=== PATIENT | male | born 2000 | race Caucasian/White ===

== ENCOUNTER 2024-10-08 23:52 | Emergency (ER) | payer SELFPAY ==
--- NOTE | 2024-10-09 00:26 | ED ---
Allergic Reaction HPI - General Chief complaint: Allergic Reaction Stated complaint: allergic reaction Time Seen by Provider: 10/09/24 00:07 Source: patient, RN notes reviewed, old records reviewed Mode of arrival: ambulatory Limitations: no limitations - History of Present Illness Initial Comments: This is a 23-year-old male to the ER for evaluation patient presents today for evaluation regards to allergic reaction to Bactrim. Patient started on Bactrim for UTI. Patient presents with facial swelling and hives overall over his entire body with severe itching MD Complaint: allergic reaction, hives, facial swelling -: hour(s) Exposure: medication Symptoms: rash, itching, facial swelling Severity: severe Treatment Prior to Arrival: none Previous Allergy History: none - Related Data Previous Rx's Medication Instructions Recorded Famotidine [Pepcid] 40 mg PO BID #28 tablet 10/09/24 hydrOXYzine HCL [Atarax] 25 mg PO TID PRN #30 tab 10/09/24 predniSONE 50 mg PO DAILY #5 tab 10/09/24 Allergies Allergy/AdvReac Type Severity Reaction Status Date / Time No Known Allergies Allergy Verified 10/08/24 23:56 Review of Systems ROS Statement: Those systems with pertinent positive or pertinent negative responses have been documented in the HPI. ROS Other: All systems not noted in ROS Statement are negative. Past Medical History Past Medical History: No Reported History History of Any Multi-Drug Resistant Organisms: None Reported Past Surgical History: No Surgical Hx Reported Past Psychological History: No Psychological Hx Reported Smoking Status: Never smoker Past Alcohol Use History: None Reported Past Drug Use History: None Reported General Exam Limitations: no limitations General appearance: alert, in no apparent distress Head exam: Present: atraumatic, normocephalic, normal inspection Eye exam: Present: normal appearance, PERRL, EOMI. Absent: scleral icterus, conjunctival injection, periorbital swelling ENT exam: Present: normal exam, mucous membranes moist Neck exam: Present: normal inspection. Absent: tenderness, meningismus, lymphadenopathy Respiratory exam: Present: normal lung sounds bilaterally. Absent: respiratory distress, wheezes, rales, rhonchi, stridor Cardiovascular Exam: Present: regular rate, normal rhythm, normal heart sounds. Absent: systolic murmur, diastolic murmur, rubs, gallop, clicks GI/Abdominal exam: Present: soft, normal bowel sounds. Absent: distended, tenderness, guarding, rebound, rigid Extremities exam: Present: normal inspection, full ROM, normal capillary refill. Absent: tenderness, pedal edema, joint swelling, calf tenderness Back exam: Present: normal inspection Neurological exam: Present: alert, oriented X3, CN II-XII intact Psychiatric exam: Present: normal affect, normal mood Skin exam: Present: warm, dry, intact, normal color. Absent: rash Course Vital Signs 10/08/24 23:54 Temperature 98.8 F Pulse Rate 147 H Respiratory 20 Rate Blood Pressure 157/89 O2 Sat by Pulse 98 Oximetry - Reevaluation(s) Reevaluation #1: 10/09/24 01:28 Medical records reviewed Reevaluation #2: 10/09/24 01:28 Patient symptoms continue to improve Reevaluation #3: 10/09/24 01:28 Patient informed of results questions answered Reevaluation #4: Was pt. sent in by a medical professional or institution (, PA, [employer], urgent c are, hospital, or snf...) When possible be specific @ -no Did you speak to anyone other than the patient for history (EMS, parent, family, police, friend...)? What history was obtained from this source @ -no Did you review nursing and triage notes (agree or disagree)? Why? @ -agree Are old charts reviewed (outside hosp., previous admission, EMS record, old EKG, old radiological studies, urgent care reports/EKG's, snf records)? Report findings @ -yes Differential Diagnosis (chest pain, altered mental status, abdominal pain women, abdominal pain men, vaginal bleeding, weakness, fever, dyspnea, syncope, headache, dizziness, GI bleed, back pain, seizure, CVA, palpatations, mental health, musculoskeletal)? @ -prior EKG interpreted by me (3pts min.). @ -yes X-rays interpreted by me (1pt min.). @ -yes negative for acute disease CT interpreted by me (1pt min.). @ -no U/S interpreted by me (1pt. min.). @ -no What testing was considered but not performed or refused? (CT, X-rays, U/S, labs)? Why? @ -none What meds were considered but not given or refused? Why? @ -none Did you discuss the management of the patient with other professionals (professionals i.e. , PA, [employer], lab, RT, psych nurse, social science professor, calibration technician, teacher, fire prevention officer, employment case manager)? Give summary @ -no Was smoking cessation discussed for >3mins.? @ -no Was critical care preformed (if so, how long)? @ -no Were there social determinants of health that impacted care today? How? (Home lessness, low income, unemployed, alcoholism, drug addiction, transportation, low edu. Level, literacy, decrease access to med. care, assisted, rehab)? @ -none Was there de-escalation of care discussed even if they declined (Discuss DNR or withdrawal of care, Hospice)? DNR status @ -no What co-morbidities impacted this encounter? (DM, HTN, Smoking, COPD, CAD, Cancer, CVA, ARF, Chemo, Hep., AIDS, mental health diagnosis, sleep apnea, morbid obesity)? @ -none Was patient admitted / discharged? Hospital course, mention meds given and route, prescriptions, significant lab abnormalities, going to OR and other pertinent info. @ - Undiagnosed new problem with uncertain prognosis? @ -no Drug Therapy requiring intensive monitoring for toxicity (Heparin, Nitro, Insulin, Cardizem)? @ -no Were any procedures done? @ -no Diagnosis/symptom? @ - Acute, or Chronic, or Acute on Chronic? @ -Acute Uncomplicated (without systemic symptoms) or Complicated (systemic symptoms)? @ -Complicated Side effects of treatment? @ -no Exacerbation, Progression, or Severe Exacerbation? @ -exacerbation Poses a threat to life or bodily function? How? (Chest pain, [place], [place], pneumonia, PE, COPD, DKA, ARF, appy, cholecystitis, CVA, Diverticulitis, Homicidal, Suicidal, threat to staff... and all critical care pts) @ -yes Medical Decision Making - Medical Decision Making 23 male to ER with severe allergic reaction to Bactrim. Patient will be switched on his antibiotic and can be discharged home as allergic reaction is improving - Lab Data Result diagrams: 10/09/24 00:20 Lab Results 10/09/24 Range/Units 00:20 WBC 10.01 H (4.50-10.00) 10*3/uL RBC 4.99 (4.40-5.60) 10*6/uL Hgb 14.7 (13.0-17.0) g/dL Hct 41.7 (39.6-50.0) % MCV 83.6 (80.0-97.0) fL MCH 29.5 (27.0-32.0) pg MCHC 35.3 (32.0-37.0) g/dL Plt Count 318 (140-440) 10*3/uL MPV 10.0 (9.5-12.2) fL Immature Gran % (Auto) 0.3 % Neutrophils % 56.4 % Lymphocytes % 37.2 % Monocytes % 5.3 % Eosinophils % 0.6 % Basophils % 0.2 % Immature Gran # 0.03 (0.00-0.04) 10*3/uL Neutrophils # 5.65 (1.80-7.70) 10*3/uL Lymphocytes # 3.72 (0.90-5.00) 10*3/uL Monocytes # 0.53 (0.20-1.00) 10*3/uL Eosinophils # 0.06 (0.04-0.35) 10*3/uL Basophils # 0.02 (0.00-0.10) 10*3/uL Disposition Clinical Impression: Allergic reaction, Allergic reaction to drug Disposition: HOME SELF-CARE Condition: Good Instructions (If sedation given, give patient instructions): Anaphylaxis (ED) Prescriptions: hydrOXYzine HCL [Atarax] 25 mg PO TID PRN #30 tab PRN Reason: Itching Famotidine [Pepcid] 40 mg PO BID #28 tablet predniSONE 50 mg PO DAILY #5 tab Is patient prescribed a controlled substance at d/c from ED?: No Referrals: None,Stated [Primary Care Provider] - 1-2 days Time of Disposition: 02:00
[2024-10-09] MEDS: diphenhydrAMINE 50 MG CAP PO STA ×2 (00:32→03:17)
[2024-10-09] MEDS: DEXAMETHASONE SOD PHOSPHATE 10 MG/ML 1 ML VIAL IVP STA (00:33)
[2024-10-09] MEDS: SODIUM CHLORIDE 0.9% 1,000 ML IV STA (00:35)
[2024-10-09] MEDS: FAMOTIDINE 20 MG/2 ML VIAL IV STA (00:37)
[2024-10-09] MEDS: AZITHROMYCIN 500 MG TAB PO STA (01:04)
[2024-10-09] MEDS: cefTRIAXone IN SWFI 1,000 MG/10 ML SYRINGE IVP STA (01:04)
[2024-10-09] MEDS: hydrOXYzine HCL 25 MG TAB PO STA ×2 (01:05→03:17)
[2024-10-09 01:15] LABS: Basophils # (A) 0.02 10*3/uL (0.00-0.10); Basophils % (A) 0.2 %; Eosinophils # (A) 0.06 10*3/uL (0.04-0.35); Eosinophils % (A) 0.6 %; HCT 41.7 % (39.6-50.0); HGB 14.7 g/dL (13.0-17.0); Lymphocytes # (A) 3.72 10*3/uL (0.90-5.00); Lymphocytes % (A) 37.2 %; MCH 29.5 pg (27.0-32.0); MCHC 35.3 g/dL (32.0-37.0); MCV 83.6 fL (80.0-97.0); Monocytes # (A) 0.53 10*3/uL (0.20-1.00); Monocytes % (A) 5.3 %; Neutrophils # (A) 5.65 10*3/uL (1.80-7.70); Neutrophils % (A) 56.4 %; Platelet Count 318 10*3/uL (140-440); RBC 4.99 10*6/uL (4.40-5.60); RDW 12.1 % (11.5-14.5); WBC 10.01 10*3/uL (4.50-10.00)
[2024-10-09 01:43] LABS: Appearance,Urine Clear (Clear); Bilirubin,Urine Negative (Negative); Blood,Urine Negative (Negative); Color,Urine Light Yellow; Glucose,Urine (UA) Negative (Negative); Ketones,Urine Negative (Negative); Leukocyte Esterase,Urine Negative (Negative); Nitrite,Urine Negative (Negative); Protein,Urine Negative (Negative); Specific Gravity,Urine 1.026 (1.001-1.035); Urobilinogen,Urine <2.0 mg/dL (<2.0)
[2024-10-09 01:44] LABS: ALT 34 U/L (4-49); AST 29 U/L (17-59); African American GFR (CKD) >90 (>60 ml/min/1.73 sqM); Albumin 4.6 g/dL (3.5-5.0); Alkaline Phosphatase 77 U/L (38-126); Anion Gap 14 mmol/L; Blood Urea Nitrogen 16 mg/dL (9-20); Calcium 9.8 mg/dL (8.4-10.2); Carbon Dioxide 23 mmol/L (22-30); Chloride 102 mmol/L (98-107); Glucose 112 mg/dL (74-99); Non-African American GFR(CKD) 84 (>60 ml/min/1.73 sqM); Potassium 3.8 mmol/L (3.5-5.1); Sodium 139 mmol/L (137-145); Total Bilirubin 0.8 mg/dL (0.2-1.3); Total Protein 7.7 g/dL (6.3-8.2)
[2024-10-09] MEDS: methylPREDNISolone SOD SUCCI 125 MG/2 ML VIAL IV STA (02:18)
[2024-10-09 02:23] VITALS: BP 126/88; PULSE 112; RESP 18; TEMP 97.6
[2024-10-09] MEDS: CIPROFLOXACIN HCL 500 MG TAB PO STA (02:32)
[2024-10-09] MEDS: predniSONE 20 MG TAB PO STA (03:16)
[2024-10-09] MEDS: FAMOTIDINE 20 MG TAB PO STA (03:17)
== END 2024-10-09 03:20 | disposition home or self-care (01) ==
LOC: EC 23:52
DX: R21 Rash and other nonspecific skin eruption (principal); T37.0X5A Adverse effect of sulfonamides, initial encounter
CPT/HCPCS: 36415; 80053; 85025; 81003; 87491; 87591; 99283; 96374; 96375; 96361 ×2; J1100; J0696; J7512; J2919; J1308

== ENCOUNTER 2024-10-15 20:18 | Emergency (ER) | payer SELFPAY ==
[2024-10-15 20:45] VITALS: RESP 18
--- NOTE | 2024-10-15 20:51 | ED ---
Allergic Reaction HPI - General Source: patient, RN notes reviewed Mode of arrival: ambulatory Limitations: no limitations <Juhi Cedeno - Last Filed: 10/15/24 20:48> <Albin Benjamin - Last Filed: 10/15/24 22:11> - General Chief complaint: Allergic Reaction Stated complaint: Allergic Reaction Time Seen by Provider: 10/15/24 20:48 - History of Present Illness Initial Comments: Quick note: 23-year-old male presented the ER for evaluation of hives. Patient states he ate a trail mix and began having hives. He states that in the week he ate a similar trail mix and had a similar reaction. He denies any tongue or throat swelling. Rash to arms and legs. No known allergies. (Juhi Cedeno) - Related Data Previous Rx's Medication Instructions Recorded Ciprofloxacin HCl [Cipro] 500 mg PO Q12HR #14 tablet 10/09/24 Famotidine [Pepcid] 40 mg PO BID #28 tablet 10/09/24 hydrOXYzine HCL [Atarax] 25 mg PO TID PRN #30 tab 10/09/24 predniSONE 50 mg PO DAILY #5 tab 10/09/24 diphenhydrAMINE [Benadryl] 25 mg PO TID PRN #21 capsule 10/15/24 methylPREDNISolone Dose Pack 4 mg PO DIRECTED #21 packet 10/15/24 [Medrol Dose Pack] Allergies Allergy/AdvReac Type Severity Reaction Status Date / Time sulfamethoxazole Allergy Rash/Hives Verified 10/09/24 01:34 [From Bactrim] tree nut [Nut] Allergy Rash/Hives Verified 10/15/24 20:45 trimethoprim [From Bactrim] Allergy Rash/Hives Verified 10/09/24 01:34 Review of Systems ROS Other: All systems not noted in ROS Statement are negative. <Juhi Cedeno - Last Filed: 10/15/24 20:48> ROS Other: All systems not noted in ROS Statement are negative. <Albin Benjamin - Last Filed: 10/15/24 22:11> ROS Statement: Those systems with pertinent positive or pertinent negative responses have been documented in the HPI. Past Medical History Past Medical History: No Reported History History of Any Multi-Drug Resistant Organisms: None Reported Past Surgical History: No Surgical Hx Reported Past Psychological History: No Psychological Hx Reported Smoking Status: Never smoker Past Alcohol Use History: None Reported Past Drug Use History: None Reported <Juhi Cedeno - Last Filed: 10/15/24 20:48> General Exam Limitations: no limitations <Juhi Cedeno - Last Filed: 10/15/24 20:48> General appearance: alert, in no apparent distress Head exam: Present: atraumatic, normocephalic Eye exam: Present: normal appearance, PERRL ENT exam: Present: normal exam, normal oropharynx Neck exam: Present: normal inspection Respiratory exam: Present: normal lung sounds bilaterally. Absent: respiratory distress, wheezes, stridor Cardiovascular Exam: Present: regular rate, normal rhythm GI/Abdominal exam: Present: soft. Absent: distended, tenderness, guarding Extremities exam: Present: normal inspection Neurological exam: Present: alert, oriented X3 Psychiatric exam: Present: normal affect, normal mood Skin exam: Present: rash, urticaria <Albin Benjamin - Last Filed: 10/15/24 22:11> - General Exam Comments Initial Comments: Visual Physical Exam Vital signs reviewed General: Well-appearing, nontoxic, no acute distress. Head: Normocephalic, atraumatic Eyes: PERRLA, EOMI ENT: Airway patent Chest: Nonlabored breathing Skin: No visual rash, normal skin tone Neuro: Alert and oriented 3 Musculoskeletal: No gross abnormalities (Juhi Cedeno) Course Vital Signs 10/15/24 20:43 Temperature 98.7 F Pulse Rate 119 H Respiratory 18 Rate Blood Pressure 131/85 O2 Sat by Pulse 97 Oximetry Medical Decision Making <Juhi Cedeno - Last Filed: 10/15/24 20:48> <Albin Benjamin - Last Filed: 10/15/24 22:11> - Medical Decision Making I performed the quick note portion of this chart. Electronically signed by Juhi Cedeno PA-C (Juhi Cedeno) Was pt. sent in by a medical professional or institution (ETHAN Dixon, [employer], urgent care, hospital, or [place] [facility]...) When possible be specific @ -No Did you speak to anyone other than the patient for history (EMS, parent, family, police, friend...)? What history was obtained from this source @ -No Did you review nursing and triage notes (agree or disagree)? Why? @ -I reviewed and agree with nursing and triage notes Were old charts reviewed (outside hosp., previous admission, EMS record, old EKG, old radiological studies, urgent care reports/EKG's, [place] [facility] records)? Report findings @ -No old charts were reviewed Differential Diagnosis: Urticaria, general allergic reaction, allergic reaction to food, anaphylaxis EKG interpreted by me (3pts min.). @ -As above X-rays interpreted by me (1pt min.). @ -None done CT interpreted by me (1pt min.). @ -None done U/S interpreted by me (1pt. min.). @ -None done What testing was considered but not performed or refused? (CT, X-rays, U/S, labs)? Why? @ -None What meds were considered but not given or refused? Why? @ -None Did you discuss the management of the patient with other professionals (professionals i.e. , PA, T[employer]ENT AC[employer]ISITION ASSOCIATE, lab, RT, psych nurse, social work instructor, manufacturing quality inspector, teacher, community service officer coordinator, family service caseworker)? Give summary @ -No Was smoking cessation discussed for >3mins.? @ -No Was critical care preformed (if so, how long)? @ -No Were there social determinants of health that impacted care today? How? (Homelessness, low income, unemployed, alcoholism, drug addiction, transportation, low edu. Level, literacy, decrease access to med. care, [place] [facility], rehab)? @ -No Was there de-escalation of care discussed even if they declined (Discuss DNR or withdrawal of care, Hospice)? DNR status @ -No What co-morbidities impacted this encounter? (DM, HTN, Smoking, COPD, CAD, Cancer, CVA, ARF, Chemo, Hep., AIDS, mental health diagnosis, sleep apnea, morbid obesity)? @ -None Was patient admitted / discharged? Hospital course, mention meds given and route, prescriptions, significant lab abnormalities, going to OR and other pertinent info. @ -23-year-old male with generalized rash, likely related to trail mix which contains several different types of nuts. No respiratory distress, no tongue or lip swelling. No stridor. No vomiting. No wheezing or difficulty breathing. Patient given Benadryl and Decadron in the emergency department. Prescribed Medrol Dosepak and continued Benadryl. Advised to avoid nuts that were in the trail mix that he ate. He will monitor symptoms closely and follow-up with his primary care provider. Undiagnosed new problem with uncertain prognosis? @ -No Drug Therapy requiring intensive monitoring for toxicity (Heparin, Nitro, Insulin, Cardizem)? @ -No Were any procedures done? @ -No Diagnosis/symptom? @Food allergy, rash Acute, or Chronic, or Acute on Chronic? @ -acute Uncomplicated (without systemic symptoms) or Complicated (systemic symptoms)? @ -Default Side effects of treatment? @ -No Exacerbation, Progression, or Severe Exacerbation? @ -No Poses a threat to life or bodily function? How? (Chest pain, [place], [place], pneumonia, PE, COPD, DKA, ARF, appy, cholecystitis, CVA, Diverticulitis, Homicidal, Suicidal, threat to staff... and all critical care pts) @ -low risk (Albin Benjamin) Disposition <Juhi Cedeno - Last Filed: 10/15/24 20:48> Is patient prescribed a controlled substance at d/c from ED?: No Time of Disposition: 22:09 <Albin Benjamin - Last Filed: 10/15/24 22:11> Clinical Impression: Allergic reaction Disposition: HOME SELF-CARE Condition: Good Instructions (If sedation given, give patient instructions): General Allergic Reaction (ED) Prescriptions: diphenhydrAMINE [Benadryl] 25 mg PO TID PRN #21 capsule PRN Reason: Allergic Reaction methylPREDNISolone Dose Pack [Medrol Dose Pack] 4 mg PO DIRECTED #21 packet Referrals: None,Stated [Primary Care Provider] - 1-2 days
[2024-10-15] MEDS: diphenhydrAMINE 25 MG CAP PO STA (22:23)
[2024-10-15] MEDS: DEXAMETHASONE SOD PHOSPHATE 10 MG/ML 1 ML VIAL IM STA (22:23)
[2024-10-15 22:29] VITALS: BP 134/79; PULSE 79; TEMP 97.8
== END 2024-10-15 22:29 | disposition home or self-care (01) ==
LOC: EC 20:18
DX: T78.1XXA Other adverse food reactions, not elsewhere classified, initial encounter (principal); L50.9 Urticaria, unspecified; Z88.2 Allergy status to sulfonamides; Z88.1 Allergy status to other antibiotic agents; Z91.018 Allergy to other foods
CPT/HCPCS: 99283; 96372; J1100

== ENCOUNTER 2024-10-19 20:08 | Emergency (ER) | payer BC ==
--- NOTE | 2024-10-19 21:22 | ED ---
Abdominal Pain HPI - General Source: patient, RN notes reviewed Mode of arrival: ambulatory Limitations: no limitations - History of Present Illness Onset/Timin -: days(s) Location: RUQ Radiation: none Migration to: no migration Severity scale (1-10): 3 Quality: dull Consistency: constant Improves With: bowel movement Worsens With: movement Associated Symptoms: nausea, diarrhea <Harley Alba - Last Filed: 10/19/24 22:45> <Jennifer Pedroza - Last Filed: 10/20/24 19:21> - General Chief Complaint: Abdominal Pain Stated Complaint: abd pain NVD Time Seen by Provider: 10/19/24 20:22 - History of Present Illness Initial Comments: This is a 23-year-old male presenting for abdominal pain x 3 days. Patient states he has been having constant RUQ pain (3/10) with nausea and diarrhea starting earlier today. Patient states he is also been sweating at night and is currently taking a Medrol Dosepak following a possible allergic reaction to nuts. Patient states pain improves slightly following bowel movement. Otherw ise denies [id number] medication use. Denies fever, chills, chest pain, dyspnea, cough, congestion, vomiting, hematochezia, melena, urinary symptoms, hematuria. (Harley Alba) - Related Data Previous Rx's Medication Instructions Recorded Ciprofloxacin HCl [Cipro] 500 mg PO Q12HR #14 tablet 10/09/24 Famotidine [Pepcid] 40 mg PO BID #28 tablet 10/09/24 hydrOXYzine HCL [Atarax] 25 mg PO TID PRN #30 tab 10/09/24 predniSONE 50 mg PO DAILY #5 tab 10/09/24 diphenhydrAMINE [Benadryl] 25 mg PO TID PRN #21 capsule 10/15/24 methylPREDNISolone Dose Pack 4 mg PO DIRECTED #21 packet 10/15/24 [Medrol Dose Pack] Allergies Allergy/AdvReac Type Severity Reaction Status Date / Time sulfamethoxazole Allergy Rash/Hives Verified 10/09/24 01:34 [From Bactrim] tree nut [Nut] Allergy Rash/Hives Verified 10/15/24 20:45 trimethoprim [From Bactrim] Allergy Rash/Hives Verified 10/09/24 01:34 Review of Systems ROS Other: All systems not noted in ROS Statement are negative. <Harley lAba - Last Filed: 10/19/24 22:45> ROS Other: All systems not noted in ROS Statement are negative. <Jennifer Pedroza - Last Filed: 10/20/24 19:21> ROS Statement: Those systems with pertinent positive or pertinent negative responses have been documented in the HPI. Past Medical History Past Medical History: No Reported History History of Any Multi-Drug Resistant Organisms: None Reported Past Surgical History: No Surgical Hx Reported Past Psychological History: No Psychological Hx Reported Smoking Status: Never smoker Past Alcohol Use History: None Reported Past Drug Use History: None Reported <Harley Alba - Last Filed: 10/19/24 22:45> General Exam Limitations: no limitations General appearance: alert, in no apparent distress Head exam: Present: atraumatic, normocephalic, normal inspection Eye exam: Present: normal appearance, PERRL, EOMI. Absent: scleral icterus, conjunctival injection, periorbital swelling ENT exam: Present: normal exam, mucous membranes moist Neck exam: Present: normal inspection. Absent: tenderness, meningismus, lymphadenopathy Respiratory exam: Present: normal lung sounds bilaterally. Absent: respiratory distress, wheezes, rales, rhonchi, stridor, accessory muscle use Cardiovascular Exam: Present: regular rate, normal rhythm, normal heart sounds. Absent: systolic murmur, diastolic murmur, rubs, gallop, clicks GI/Abdominal exam: Present: soft, normal bowel sounds, other (Negative RLQ TTP, Rovsing sign, Coronado sign). Absent: distended, tenderness (Nontender in all regions and quadrants. Negative tympanic tenderness), guarding, rebound, rigid, organomegaly, mass, hernia Extremities exam: Present: normal inspection, full ROM, normal capillary refill. Absent: tenderness, pedal edema, joint swelling, calf tenderness Back exam: Present: normal inspection Neurological exam: Present: alert, oriented X3, CN II-XII intact Psychiatric exam: Present: normal affect, normal mood Skin exam: Present: warm, dry, intact, normal color. Absent: rash <AnjaliHarley - Last Filed: 10/19/24 22:45> Course Vital Signs 10/19/24 10/20/24 20:26 03:53 Temperature 98.0 F 97.7 F Pulse Rate 122 H 81 Respiratory 19 18 Rate Blood Pressure 133/98 126/84 O2 Sat by Pulse 97 96 Oximetry Medical Decision Making - Lab Data Result diagrams: 10/19/24 21:56 10/19/24 21:56 <Harley Alba - Last Filed: 10/19/24 22:45> - Lab Data Result diagrams: 10/19/24 21:56 10/19/24 21:56 <Jennifer - Last Filed: 10/20/24 19:21> - Medical Decision Making Was pt. sent in by a medical professional or institution (, PA, OBSTETRIC ASSISTANT, urgent care, hospital, or detention...) When possible be specific @ -[No] Did you speak to anyone other than the patient for history (EMS, parent, family, police, friend...)? What history was obtained from this source @ -[No] Did you review nursing and triage notes (agree or disagree)? Why? @ -[I reviewed and agree with nursing and triage notes] Were old charts reviewed (outside hosp., previous admission, EMS record, old EKG, old radiological studies, urgent care reports/EKG's, detention records)? Report findings @ -[No old charts were reviewed] Differential Diagnosis (chest pain, altered mental status, abdominal pain women, abdominal pain men, vaginal bleeding, weakness, fever, dyspnea, syncope, headache, dizziness, GI bleed, back pain, seizure, CVA, palpatations, mental health, musculoskeletal)? @ -Differential Abdominal Pain Men: Appendicitis, cholecystitis, diverticulosis, ischemic bowel, pancreatitis, hepatitis, UTI, gastroenteritis, AAA, incarcerated hernia, bowel obstruction, constipation, inflammatory bowel, hepatitis, peptic ulcer disease, splenic infarction, perforated viscus, testicular torsion, this is not meant to be an all-inclusive list EKG interpreted by me (3pts min.). @ -Not done X-rays interpreted by me (1pt min.). @ -[None done] CT interpreted by me (1pt min.). @ -[None done] U/S interpreted by me (1pt. min.). @ -[None done] What testing was considered but not performed or refused? (CT, X-rays, U/S, labs)? Why? @ -[None] What meds were considered but not given or refused? Why? @ -[None] Did you discuss the management of the patient with other professionals (professionals i.e. , PA, OBSTETRIC ASSISTANT, lab, RT, psych nurse, nephrology social worker, mechanical detailer, teacher, special skills officer, case monitor)? Give summary @ -[No] Was smoking cessation discussed for >3mins.? @ -[No] Was critical care preformed (if so, how long)? @ -[No] Were there social determinants of health that impacted care today? How? (Priyanka elessness, low income, unemployed, alcoholism, drug addiction, transportation, low edu. Level, literacy, decrease access to med. care, [facility], rehab)? @ -[No] Was there de-escalation of care discussed even if they declined (Discuss DNR or withdrawal of care, Hospice)? DNR status @ -[No] What co-morbidities impacted this encounter? (DM, HTN, Smoking, COPD, CAD, Cancer, CVA, ARF, Chemo, Hep., AIDS, mental health diagnosis, sleep apnea, morbid obesity)? @ -[None] Was patient admitted / discharged? Hospital course, mention meds given and route, prescriptions, significant lab abnormalities, going to OR and other pertinent info. @ -[hospital course] Undiagnosed new problem with uncertain prognosis? @ -[No] Drug Therapy requiring intensive monitoring for toxicity (Heparin, Nitro, Insulin, Cardizem)? @ -[No] Were any procedures done? @ -[No] Diagnosis/symptom? @ -[default] Acute, or Chronic, or Acute on Chronic? @ -Acute Uncomplicated (without systemic symptoms) or Complicated (systemic symptoms)? @ -Complicated Side effects of treatment? @ -[No] Exacerbation, Progression, or Severe Exacerbation? @ -[No] Poses a threat to life or bodily function? How? (Chest pain, [place], [place], pneumonia, PE, COPD, DKA, ARF, appy, cholecystitis, CVA, Diverticulitis, Homicidal, Suicidal, threat to staff... and all critical care pts) @ -[No] (Harley Alba) Was patient admitted / discharged? Hospital course, mention meds given and route, prescriptions, significant lab abnormalities, going to OR and other pertinent info. @ -Discharged- patient was signed out to myself by Agustin MCGARRY. Pending ultrasound. Briefly is a 23-year-old male presenting today for 2 to 3 days of right upper quadrant abdominal pain ever since starting steroids. Pain is rated as a 2 out of 3 nature. It is well-controlled. He has declined pain control. Labs are significant for slightly elevated AST of 70. Ultrasound will be obtained. Patient is resting company no acute distress. He states that he does have some nausea but no episodes of vomiting. I again offered pain and nausea control, he declined pain control however excepted Zofran. He tolerated a sandwich, chips and water. Ultrasound is still pending, on my review gallbladder appears contracted, I see no evidence of common bile duct dilation or gallbladder wall thickening, no cholelithiasis, however due to a prolonged wait time on ultrasound read I discussed with the patient option of being discharged home prior to read and will contact patient if results warrant return to the ED. He is agreeable and comfortable with discharge home at this time. In my medical judgment there is currently no evidence of an immediate life-t hreatening or surgical condition. Discharge is therefore indicated at this time. Discharge treatment instructions, follow up instructions, and appropriate emergency department return precautions were discussed with the patient and/or medical decision maker. Patient and/or medical decision maker expressed understanding of and agreed with the treatment plan, follow up instructions, and emergency department return precaution. All patient's and/or medical decision maker's questions were answered. The patient was advised that a small risk still exists that a serious condition could develop and was therefore instructed to return to the ED for any changes in symptoms, persistent symptoms, inability to obtain proper follow-up or for any further concerns. Patient received verbal and written instructions for this condition. Of note, Ultrasound ultimately was read as mild hepatomegaly with hepatic steatosis but no acute abnormality. Undiagnosed new problem with uncertain prognosis? @ -No Drug Therapy requiring intensive monitoring for toxicity (Heparin, Nitro, Insulin, Cardizem)? @ -No Were any procedures done? @ -No Diagnosis/symptom? @Right upper quadrant abdominal pain, nausea Acute, or Chronic, or Acute on Chronic? @ -Acute Uncomplicated (without systemic symptoms) or Complicated (systemic symptoms)? @ -Complicated Side effects of treatment? @ -No Exacerbation, Progression, or Severe Exacerbation? @ -No Poses a threat to life or bodily function? How? (Chest pain, [place], [place], pneumonia, PE, COPD, DKA, ARF, appy, cholecystitis, CVA, Diverticulitis, Homicidal, Suicidal, threat to staff... and all critical care pts) @ -No (Jennifer Pedroza) - Lab Data Lab Results 10/19/24 10/19/24 10/19/24 Range/Units 21:56 21:56 21:56 WBC 14.48 H (4.50-10.00) 10*3/uL RBC 5.20 (4.40-5.60) 10*6/uL Hgb 15.4 (13.0-17.0) g/dL Hct 44.1 (39.6-50.0) % MCV 84.8 (80.0-97.0) fL MCH 29.6 (27.0-32.0) pg MCHC 34.9 (32.0-37.0) g/dL Plt Count 376 (140-440) 10*3/uL MPV 9.2 L (9.5-12.2) fL Immature Gran % (Auto) 0.6 % Neutrophils % 64.3 % Lymphocytes % 26.4 % Monocytes % 7.9 % Eosinophils % 0.5 % Basophils % 0.3 % Immature Gran # 0.09 H (0.00-0.04) 10*3/uL Neutrophils # 9.31 H (1.80-7.70) 10*3/uL Lymphocytes # 3.82 (0.90-5.00) 10*3/uL Monocytes # 1.15 H (0.20-1.00) 10*3/uL Eosinophils # 0.07 (0.04-0.35) 10*3/uL Basophils # 0.04 (0.00-0.10) 10*3/uL Sodium 137 (137-145) mmol/L Potassium 4.5 (3.5-5.1) mmol/L Chloride 102 (98-107) mmol/L Carbon Dioxide 23 (22-30) mmol/L Anion Gap 12 mmol/L BUN 23 H (9-20) mg/dL Creatinine 0.84 (0.66-1.25) mg/dL Est GFR (CKD-EPI)AfAm >90 (>60 ml/min/1.73 sqM) Est GFR (CKD-EPI)NonAf >90 (>60 ml/min/1.73 sqM) Glucose 108 H (74-99) mg/dL Plasma Lactic Acid Raj 1.4 (0.7-2.0) mmol/L Calcium 9.7 (8.4-10.2) mg/dL Total Bilirubin 1.2 (0.2-1.3) mg/dL AST 42 (17-59) U/L ALT 70 H (4-49) U/L Alkaline Phosphatase 58 (38-126) U/L Total Protein 7.8 (6.3-8.2) g/dL Albumin 4.6 (3.5-5.0) g/dL Lipase 173 (23-300) U/L Urine Color Urine Appearance (Clear) Urine pH (5.0-8.0) Ur Specific [place] (1.001-1.035) Urine Protein (Negative) Urine Glucose (UA) (Negative) Urine Ketones (Negative) Urine Blood (Negative) Urine Nitrite (Negative) Urine Bilirubin (Negative) Urine Urobilinogen (<2.0) mg/dL Ur Leukocyte Esterase (Negative) 10/19/24 Range/Units 22:01 WBC (4.50-10.00) 10*3/uL RBC (4.40-5.60) 10*6/uL Hgb (13.0-17.0) g/dL Hct (39.6-50.0) % MCV (80.0-97.0) fL MCH (27.0-32.0) pg MCHC (32.0-37.0) g/dL Plt Count (140-440) 10*3/uL MPV (9.5-12.2) fL Immature Gran % (Auto) % Neutrophils % % Lymphocytes % % Monocytes % % Eosinophils % % Basophils % % Immature Gran # (0.00-0.04) 10*3/uL Neutrophils # (1.80-7.70) 10*3/uL Lymphocytes # (0.90-5.00) 10*3/uL Monocytes # (0.20-1.00) 10*3/uL Eosinophils # (0.04-0.35) 10*3/uL Basophils # (0.00-0.10) 10*3/uL Sodium (137-145) mmol/L Potassium (3.5-5.1) mmol/L Chloride (98-107) mmol/L Carbon Dioxide (22-30) mmol/L Anion Gap mmol/L BUN (9-20) mg/dL Creatinine (0.66-1.25) mg/dL Est GFR (CKD-EPI)AfAm (>60 ml/min/1.73 sqM) Est GFR (CKD-EPI)NonAf (>60 ml/min/1.73 sqM) Glucose (74-99) mg/dL Plasma Lactic Acid Raj (0.7-2.0) mmol/L Calcium (8.4-10.2) mg/dL Total Bilirubin (0.2-1.3) mg/dL AST (17-59) U/L ALT (4-49) U/L Alkaline Phosphatase (38-126) U/L Total Protein (6.3-8.2) g/dL Albumin (3.5-5.0) g/dL Lipase (23-300) U/L Urine Color Light Yellow Urine Appearance Clear (Clear) Urine pH 5.5 (5.0-8.0) Ur Specific [place] 1.029 (1.001-1.035) Urine Protein Negative (Negative) Urine Glucose (UA) Negative (Negative) Urine Ketones Negative (Negative) Urine Blood Negative (Negative) Urine Nitrite Negative (Negative) Urine Bilirubin Negative (Negative) Urine Urobilinogen <2.0 (<2.0) mg/dL Ur Leukocyte Esterase Negative (Negative) Disposition <Harley Alba - Last Filed: 10/19/24 22:45> Is patient prescribed a controlled substance at d/c from ED?: No <Jennifer Pedroza - Last Filed: 10/20/24 19:21> Clinical Impression: Nausea, Abdominal pain Disposition: HOME SELF-CARE Condition: Good Instructions (If sedation given, give patient instructions): Abdominal Pain (ED) Additional Instructions: Every disease is a spectrum and a small chance still exists that a serious condition could develop, for this reason, please monitor yourself closely for new, changing or worsening symptoms, symptoms that persist beyond an additional or do not improve in 48 hours, vomiting blood or bright green color in your vomit, no bowel movement for greater than 5 days, fever, inability to tolerate/keep down fluids or your medications, inability to follow up with outpatient providers as instructed and should you experience these symptoms or should you have any further concerns for your wellbeing please return to the ED or call 911 immediately. Please drink plenty of fluids and get plenty of rest. PLEASE call your primary care physician as soon as possible to arrange / discuss plan for followup appointment. Appointment in the next 1-3 days is strongly encouraged if possible. PLEASE let us know here before you leave if there is anything further we can do to be of any assistance. Take care and feel Better! Referrals: None,Stated [Primary Care Provider] - 1-2 days
[2024-10-19] MEDS: SODIUM CHLORIDE 0.9% 1,000 ML IV STA (21:56)
[2024-10-19 22:05] LABS: Basophils # (A) 0.04 10*3/uL (0.00-0.10); Basophils % (A) 0.3 %; Eosinophils # (A) 0.07 10*3/uL (0.04-0.35); Eosinophils % (A) 0.5 %; HCT 44.1 % (39.6-50.0); HGB 15.4 g/dL (13.0-17.0); Lymphocytes # (A) 3.82 10*3/uL (0.90-5.00); Lymphocytes % (A) 26.4 %; MCH 29.6 pg (27.0-32.0); MCHC 34.9 g/dL (32.0-37.0); MCV 84.8 fL (80.0-97.0); Mean Platelet Volume 9.2 fL (9.5-12.2); Monocytes # (A) 1.15 10*3/uL (0.20-1.00); Monocytes % (A) 7.9 %; Neutrophils # (A) 9.31 10*3/uL (1.80-7.70); Neutrophils % (A) 64.3 %; Platelet Count 376 10*3/uL (140-440); RDW 12.4 % (11.5-14.5); WBC 14.48 10*3/uL (4.50-10.00)
[2024-10-19 22:18] LABS: ALT 70 U/L (4-49); African American GFR (CKD) >90 (>60 ml/min/1.73 sqM); Albumin 4.6 g/dL (3.5-5.0); Anion Gap 12 mmol/L; Blood Urea Nitrogen 23 mg/dL (9-20); Calcium 9.7 mg/dL (8.4-10.2); Carbon Dioxide 23 mmol/L (22-30); Chloride 102 mmol/L (98-107); Glucose 108 mg/dL (74-99); Lipase 173 U/L (23-300); Non-African American GFR(CKD) >90 (>60 ml/min/1.73 sqM); Sodium 137 mmol/L (137-145); Total Bilirubin 1.2 mg/dL (0.2-1.3); Total Protein 7.8 g/dL (6.3-8.2)
[2024-10-19 22:19] LABS: Appearance,Urine Clear (Clear); Bilirubin,Urine Negative (Negative); Blood,Urine Negative (Negative); Color,Urine Light Yellow; Glucose,Urine (UA) Negative (Negative); Ketones,Urine Negative (Negative); Leukocyte Esterase,Urine Negative (Negative); Nitrite,Urine Negative (Negative); PH, Urine 5.5 (5.0-8.0); Protein,Urine Negative (Negative); Specific Gravity,Urine 1.029 (1.001-1.035); Urobilinogen,Urine <2.0 mg/dL (<2.0)
[2024-10-19 22:36] LABS: AST 42 U/L (17-59); Alkaline Phosphatase 58 U/L (38-126); Potassium 4.5 mmol/L (3.5-5.1)
--- NOTE | 2024-10-20 00:25 | XR ---
EXAM: XR Abdomen, 1 View CLINICAL HISTORY: ITS.REASON XR Reason: Abdominal pain, nausea, diarrhea TECHNIQUE: Frontal supine view of the abdomen/pelvis. COMPARISON: No relevant prior studies available. FINDINGS: Gastrointestinal tract: Unremarkable. No dilation. Bones/joints: Unremarkable. IMPRESSION: Normal abdominal x-ray.
[2024-10-20] MEDS: ONDANSETRON 4 MG ODT STARTER PACK 2 TAB BTL PO STA (03:21)
[2024-10-20] MEDS: ONDANSETRON ODT 4 MG TAB PO STA (03:21)
[2024-10-20 03:54] VITALS: BP 126/84; PULSE 81; RESP 18; TEMP 97.7
--- NOTE | 2024-10-20 04:42 | US ---
EXAM: US Abdomen Limited, Right Upper Quadrant CLINICAL HISTORY: ITS.REASON US Reason: RUQ pain TECHNIQUE: Real-time ultrasound of the right upper quadrant with image documentation. COMPARISON: None FINDINGS: Liver: Measures 17.0 cm. Increased echogenicity of the liver suggestive of hepatic steatosis. No focal lesion. Portal vein: Patent with normal direction of flow. Gallbladder: Negative distended gallbladder. No wall thickening or pericholecystic fluid. No stone or sludge. Negative sonographic Coronado's sign. Biliary tree: No abnormal dilatation. Common bile duct measures 4.1 mm. Pancreas: Not evaluated due to overlying bowel gas. Right kidney: Measures 11.3 cm in length. No hydronephrosis or stone. No mass. Peritoneal space: Normal. No free fluid. IVC: Visualized portions are unremarkable. IMPRESSION: 1. Mild hepatomegaly. Hepatic steatosis. 2. No acute abnormality.
== END 2024-10-20 04:33 | disposition home or self-care (01) ==
LOC: EC 20:08
DX: R10.11 Right upper quadrant pain (principal); R11.0 Nausea; Z88.1 Allergy status to other antibiotic agents; Z88.2 Allergy status to sulfonamides; Z91.018 Allergy to other foods
CPT/HCPCS: 36415; 74018; 76705; 80053; 81003; 83605; 83690; 85025; 96360; 99284